=== PATIENT | male | born 1955 | race African-American/Black ===

== ENCOUNTER 2018-03-13 15:42 | Inpatient (IN) ==
[2018-03-13] MEDS: LACTATED RINGERS 1,000 ML IV SCH (15:45)
[2018-03-13] MEDS ORDERED: LACTATED RINGERS 2,000 ML IV STA (15:52)
[2018-03-13] MEDS ORDERED: DIPH/TET/ACEL PERT BOOSTER VACCINE 0.5 ML VIAL IM ONE (15:52)
[2018-03-13] MEDS ORDERED: LACTATED RINGERS 1,000 ML IV STA (15:52)
[2018-03-13 15:58] LABS: ABG Base Excess -17.4 MMOL/L (-2.5-2.5); ABG HCO3 11.5 MMOL/L (20-26); ABG Oxygen Saturation 99.4 % (95-100); ABG PCO2 27.4 MM HG (35-48); ABG TCO2 9.4 MMOL/L (23-27); Allen Test Positive
[2018-03-13 16:06] LABS: ABG PH 7.174 (7.35-7.45)
[2018-03-13 16:12] LABS: Apearance,Urine CLEAR (Clear); Bilirubin,Urine Negative (Negative); Blood, Urine Moderate mg/dL (Negative); Glucose,Urine (UA) Negative (Negative); Ketones,Urine Negative (Negative); Nitrite,Urine Negative (Negative); Protein,Urine Negative; RBC,Urine <1 /HPF (0-4); Urine Color Colorless (Yellow); Urine Specific Gravity 1.001 (1.001-1.035); Urine Urobilinogen < 2.0 EU/DL (0.2-1.0)
[2018-03-13 16:13] LABS: Basophils % 0.4 % (0.0-0.8); Eosinophils # 0.2 10*3/uL (0.0-0.87); Hematocrit 32.9 VOL% (42.0-52.0); Hemoglobin 10.3 GM/DL (14.0-18.0); Immature Granulocytes % 1.7 %; Immature Granulocytes Absolute 0.13 #; Lymphocytes # 3.1 10*3/uL (1.4-4.0); Lymphocytes % 41.3 % (21.2-54.2); Mean Corpuscular HGB Conc 31.3 GM/DL (32-36); Mean Corpuscular Hemoglobin 29 PG (27-34); Mean Corpuscular Volume 92.9 FL (87-102); Mean Platelet Volume 10.7 FL (9.6-12.0); Monocytes # 0.7 10*3/uL (0.11-0.8); Monocytes % 9.1 % (1.7-12.7); Neutrophils # 3.4 10*3/uL (1.4-7.4); Neutrophils % 45.5 % (38.7-73.9); Platelet Count 167 T/CUMM (130-400); Red Blood Count 3.54 MC/CUMM (3.8-5.5); Red Cell Distribution Width 15.1 % (9.3-17.3); White Blood Count 7.6 T/CUMM (4-12)
[2018-03-13 16:27] LABS: ABG Base Excess -21.3 MMOL/L (-2.5-2.5); ABG HCO3 9.3 MMOL/L (20-26); ABG Oxygen Saturation 99.3 % (95-100); ABG PCO2 34.7 MM HG (35-48); ABG TCO2 8.8 MMOL/L (23-27); Glucose Heart Surgery 285 MG/DL (74-106); Hemoglobin Heart Surgery 11.7 G/DL (14.0-18.0); Ionized Calcium Arterial 1.18 MMOL/L (1.21-1.46); PCO2 Patient Temp Arterial 34.7 MMHG; Patient Temperature 37 CELCIUS; Potassium Heart/CVR 2.6 MMOL/L (3.5-5.1); Sodium Heart/CVR 138 MMOL/L (135-145)
[2018-03-13 16:32] LABS: Barbiturates Screen,Urine Negative (Negative); Benzodiazepines Screen,Urine Negative (Negative); Cannabinoid Screen,Urine Negative (Negative); Opiate Screen,Urine Negative (Negative); Phencyclidine Screen,Urine Negative (Negative)
[2018-03-13 16:35] LABS: Alanine Aminotransferase 23 U/L (16-61); Albumin 2.5 G/DL (3.4-5.0); Alkaline Phosphatase 44 U/L (45-117); Amylase 34 U/L (25-115); Aspartate Amino Transferase 21 U/L (0-37); Bilirubin,Total < 0.39 MG/DL (0.2-1.0); Blood Urea Nitrogen 7 MG/DL (7-18); Calcium 8.1 MG/DL (8.5-10.1); Glucose 272 MG/DL (74-106); Osmolality,Calculated 284.5 MOS/KG (273-304); Potassium 3.8 MMOL/L (3.5-5.1); Sodium 139 MMOL/L (136-145); Total Protein 5.2 G/DL (6.4-8.3)
[2018-03-13 17:17] LABS: INR 1.4; PT Patient Result 14.8 SECS; Partial Thromboplastin Time 62.3 SECS (0-40)
[2018-03-13] MEDS ORDERED: PNEUMOCOCCAL VACCINE (23 VALENT) 0.5 ML VIAL IM ONE (17:23)
[2018-03-13] MEDS ORDERED: SODIUM CHLORIDE 0.9% 1,000 ML IV PRN ×2 (17:23)
[2018-03-13] MEDS ORDERED: MENINGOCOCCAL VACCINE 0.5 ML VIAL SUBCUT ONE (17:23)
[2018-03-13] MEDS ORDERED: HAEMOPHILUS B CONJ VACCINE 0.5 ML/10 MCG VIAL IM ONE (17:23)
[2018-03-13] MEDS ORDERED: PNEUMOCOCCAL VACCINE (13 VALENT) 0.5 ML SYRINGE IM ONE (17:23)
[2018-03-13] MEDS ORDERED: ETOMIDATE 20 MG/10 ML VIAL IV ONE (17:26)
[2018-03-13] MEDS ORDERED: ROCURONIUM 100 MG/10 ML VIAL IV ONE ×2 (17:26→19:56)
[2018-03-13 17:55] LABS: Basophils % 0.3 % (0.0-0.8); Eosinophils # 0.1 10*3/uL (0.0-0.87); Eosinophils % 0.5 % (0.00-10.9); Hematocrit 32.2 VOL% (42.0-52.0); Immature Granulocytes % 2.3 %; Immature Granulocytes Absolute 0.26 #; Lymphocytes # 1.1 10*3/uL (1.4-4.0); Lymphocytes % 9.5 % (21.2-54.2); Mean Corpuscular HGB Conc 34.2 GM/DL (32-36); Mean Corpuscular Hemoglobin 30 PG (27-34); Mean Corpuscular Volume 86.3 FL (87-102); Mean Platelet Volume 9.9 FL (9.6-12.0); Monocytes # 0.3 10*3/uL (0.11-0.8); Monocytes % 3.1 % (1.7-12.7); Neutrophils # 9.3 10*3/uL (1.4-7.4); Neutrophils % 84.3 % (38.7-73.9); Platelet Count 110 T/CUMM (130-400); Red Blood Count 3.73 MC/CUMM (3.8-5.5); Red Cell Distribution Width 13.9 % (9.3-17.3); White Blood Count 11.1 T/CUMM (4-12)
[2018-03-13 17:58] LABS: ABG Base Excess -2.9 MMOL/L (-2.5-2.5); ABG Oxygen Saturation 99.8 % (95-100); ABG PCO2 33.5 MM HG (35-48); ABG PH 7.406 (7.35-7.45); ABG TCO2 18.8 MMOL/L (23-27)
[2018-03-13] MEDS ORDERED: SEVOFLURANE 1 UNIT/15 MINUTE INH ONE ×2 (18:02→19:55)
[2018-03-13] MEDS ORDERED: MIDAZOLAM 2 MG/2 ML VIAL ONE ×2 (18:02→19:56)
[2018-03-13] MEDS ORDERED: SODIUM CHLORIDE 0.9% 3,000 ML IV ONE (18:02)
[2018-03-13] MEDS ORDERED: LACTATED RINGERS 1,000 ML IV ONE ×4 (18:02→22:41)
[2018-03-13] MEDS ORDERED: EPINEPHrine 1 MG/10 ML SYRINGE ONE (18:02)
[2018-03-13] MEDS ORDERED: CALCIUM CHLORIDE 1,000 MG/10 ML VIAL IV ONE (18:02)
[2018-03-13] MEDS ORDERED: MIDAZOLAM 10 MG/2 ML VIAL ONE (18:02)
[2018-03-13] MEDS ORDERED: SODIUM BICARBONATE 50 MEQ/50 ML SYRINGE IV ONE (18:02)
[2018-03-13] MEDS ORDERED: HEPARIN/NACL 0.9% 2 UNITS/ML 500 ML IV ONE (18:03)
[2018-03-13 18:07] LABS: INR 1.1; PT Patient Result 11.7 SECS
[2018-03-13 18:19] LABS: Albumin 2.8 G/DL (3.4-5.0); Bilirubin,Total 0.6 MG/DL (0.2-1.0); Calcium 7.2 MG/DL (8.5-10.1); Osmolality,Calculated 295.3 MOS/KG (273-304); Total Protein 5.4 G/DL (6.4-8.3)
[2018-03-13] MEDS ORDERED: HYDROmorphone 2 MG/1 ML VIAL IV ONE (18:20)
[2018-03-13 18:22] LABS: Lactic Acid 8.4 MMOL/L (0.4-2.0)
[2018-03-13] MEDS ORDERED: HYDROmorphone 2 MG/1 ML VIAL ONE (18:28)
[2018-03-13] MEDS ORDERED: POTASSIUM CHLORIDE RIDER 20 MEQ in PREMIX 1 EACH IV PRN (18:34)
[2018-03-13] MEDS ORDERED: POTASSIUM CHLORIDE RIDER 10 MEQ in PREMIX 1 EACH IV PRN (18:34)
[2018-03-13] MEDS ORDERED: POTASSIUM CHLORIDE RIDER 100 ML IV ONE (18:36)
[2018-03-13 18:40] LABS: ABG Base Excess -2.9 MMOL/L (-2.5-2.5); ABG Oxygen Saturation 99.3 % (95-100); ABG PCO2 36.2 MM HG (35-48); ABG PH 7.384 (7.35-7.45); ABG TCO2 19.2 MMOL/L (23-27); Glucose Heart Surgery 206 MG/DL (74-106); Hemoglobin Heart Surgery 11.7 G/DL (14.0-18.0); Potassium Heart/CVR 3.3 MMOL/L (3.5-5.1)
[2018-03-13] MEDS ORDERED: SODIUM CHLORIDE 0.9% 1,000 ML IV ONE (19:56)
[2018-03-13] MEDS: PROPOFOL 1,000 MG/100 ML BOTTLE IV SCH (21:18)
[2018-03-13] MEDS: HYDROmorphone 2 MG/1 ML VIAL IV PRN ×2 (21:29→23:08)
[2018-03-13 21:41] LABS: Band Neutrophils 3 % (0-10); Lymphocytes 11 % (20-55); Segmented Neutrophils 82 % (50-85); Total Cells Counted 100
[2018-03-13 21:41] LABS: Basophils % 0.1 % (0.0-0.8); Eosinophils % 0.1 % (0.00-10.9); Hematocrit 24.6 VOL% (42.0-52.0); Hemoglobin 8.3 GM/DL (14.0-18.0); Immature Granulocytes % 0.5 %; Immature Granulocytes Absolute 0.04 #; Lymphocytes # 1.6 10*3/uL (1.4-4.0); Lymphocytes % 18.9 % (21.2-54.2); Mean Corpuscular HGB Conc 33.7 GM/DL (32-36); Mean Corpuscular Hemoglobin 29 PG (27-34); Mean Corpuscular Volume 86.6 FL (87-102); Monocytes # 0.4 10*3/uL (0.11-0.8); Monocytes % 5.2 % (1.7-12.7); Neutrophils # 6.3 10*3/uL (1.4-7.4); Neutrophils % 75.2 % (38.7-73.9); Platelet Count 64 T/CUMM (130-400); Red Blood Count 2.84 MC/CUMM (3.8-5.5); Red Cell Distribution Width 13.7 % (9.3-17.3); White Blood Count 8.3 T/CUMM (4-12)
[2018-03-13 21:42] LABS: Spherocytes Few
[2018-03-13 21:43] LABS: Anisocytosis Slight
[2018-03-13 21:45] LABS: Platelet Estimate Adequate
[2018-03-13 22:05] LABS: Alanine Aminotransferase 57 U/L (16-61); Albumin 1.8 G/DL (3.4-5.0); Alkaline Phosphatase 33 U/L (45-117); Aspartate Amino Transferase 111 U/L (0-37); Blood Urea Nitrogen 8 MG/DL (7-18); Calcium 6.3 MG/DL (8.5-10.1); Glucose 148 MG/DL (74-106); Osmolality,Calculated 299.9 MOS/KG (273-304); Potassium 3.4 MMOL/L (3.5-5.1); Sodium 151 MMOL/L (136-145); Total Protein 3.5 G/DL (6.4-8.3)
[2018-03-13 22:13] LABS: Lactic Acid 8.3 MMOL/L (0.4-2.0)
[2018-03-13] MEDS ORDERED: CALCIUM GLUCONATE 1,000 MG in SODIUM CHLORIDE 0.9% 100 ML IV ONE (22:40)
[2018-03-13 23:07] LABS: Band Neutrophils 7 % (0-10); Lymphocytes 21 % (20-55); Segmented Neutrophils 71 % (50-85); Total Cells Counted 100
[2018-03-13 23:09] LABS: Platelet Estimate Decreased
[2018-03-13 23:10] LABS: Anisocytosis Slight
[2018-03-13] MEDS ORDERED: PHENYLEPHRINE DRIP 40 MG/250 ML PREMIX IV PRN (23:11)
[2018-03-14] MEDS: PROPOFOL 1,000 MG/100 ML BOTTLE IV SCH ×7 (00:53→23:32)
[2018-03-14 00:56] LABS: Basophils % 0.1 % (0.0-0.8); Eosinophils % 0.1 % (0.00-10.9); Hematocrit 31.2 VOL% (42.0-52.0); Hemoglobin 11.1 GM/DL (14.0-18.0); Immature Granulocytes % 0.5 %; Immature Granulocytes Absolute 0.04 #; Lymphocytes % 12.9 % (21.2-54.2); Mean Corpuscular HGB Conc 35.6 GM/DL (32-36); Mean Corpuscular Hemoglobin 31 PG (27-34); Mean Corpuscular Volume 85.7 FL (87-102); Mean Platelet Volume 9.8 FL (9.6-12.0); Monocytes # 0.7 10*3/uL (0.11-0.8); Monocytes % 9.7 % (1.7-12.7); Neutrophils # 5.6 10*3/uL (1.4-7.4); Neutrophils % 76.7 % (38.7-73.9); Platelet Count 58 T/CUMM (130-400); Red Blood Count 3.64 MC/CUMM (3.8-5.5); Red Cell Distribution Width 14.1 % (9.3-17.3); White Blood Count 7.3 T/CUMM (4-12)
[2018-03-14] MEDS: LACTATED RINGERS 1,000 ML IV SCH ×4 (01:09→18:26)
[2018-03-14 01:14] LABS: Albumin 1.9 G/DL (3.4-5.0); Bilirubin,Total 0.4 MG/DL (0.2-1.0); Calcium 6.9 MG/DL (8.5-10.1); Potassium 3.7 MMOL/L (3.5-5.1); Total Protein 3.9 G/DL (6.4-8.3)
[2018-03-14 01:39] LABS: Lactic Acid 2.4 MMOL/L (0.4-2.0)
[2018-03-14 02:31] LABS: Band Neutrophils 5 % (0-10); Lymphocytes 11 % (20-55); Segmented Neutrophils 76 % (50-85); Total Cells Counted 100
[2018-03-14 02:32] LABS: Anisocytosis 1+; Hypochromasia 1+; Platelet Estimate Decreased
[2018-03-14] MEDS: HYDROmorphone 2 MG/1 ML VIAL IV PRN (03:24)
[2018-03-14 05:00] LABS: ABG Base Excess 2.1 MMOL/L (-2.5-2.5); ABG HCO3 26.3 MMOL/L (20-26); ABG Oxygen Saturation 99.6 % (95-100); ABG PCO2 35.6 MM HG (35-48); ABG PH 7.465 (7.35-7.45); ABG TCO2 22.7 MMOL/L (23-27)
[2018-03-14 05:06] LABS: Basophils % 0.2 % (0.0-0.8); Eosinophils % 0.3 % (0.00-10.9); Hematocrit 32.6 VOL% (42.0-52.0); Hemoglobin 11.2 GM/DL (14.0-18.0); Immature Granulocytes % 0.3 %; Immature Granulocytes Absolute 0.03 #; Lymphocytes # 0.8 10*3/uL (1.4-4.0); Lymphocytes % 8.7 % (21.2-54.2); Mean Corpuscular HGB Conc 34.4 GM/DL (32-36); Mean Corpuscular Hemoglobin 29 PG (27-34); Mean Corpuscular Volume 85.6 FL (87-102); Mean Platelet Volume 10.2 FL (9.6-12.0); Monocytes % 10.6 % (1.7-12.7); Neutrophils # 7.1 10*3/uL (1.4-7.4); Neutrophils % 79.9 % (38.7-73.9); Platelet Count 68 T/CUMM (130-400); Red Blood Count 3.81 MC/CUMM (3.8-5.5); Red Cell Distribution Width 14.2 % (9.3-17.3)
[2018-03-14 05:13] LABS: INR 1.2; PT Patient Result 12.1 SECS
[2018-03-14 05:34] LABS: Calcium 6.9 MG/DL (8.5-10.1); Osmolality,Calculated 291.3 MOS/KG (273-304); Potassium 3.9 MMOL/L (3.5-5.1)
[2018-03-14 05:36] LABS: Alanine Aminotransferase 101 U/L (16-61); Albumin 1.9 G/DL (3.4-5.0); Alkaline Phosphatase 46 U/L (45-117); Aspartate Amino Transferase 333 U/L (0-37); Blood Urea Nitrogen 8 MG/DL (7-18); Glucose 103 MG/DL (74-106); Osmolality,Calculated 289.4 MOS/KG (273-304); Potassium 3.9 MMOL/L (3.5-5.1); Sodium 147 MMOL/L (136-145); Total Protein 4.1 G/DL (6.4-8.3)
[2018-03-14 05:47] LABS: Band Neutrophils 13 % (0-10); Eosinophils 1 % (0-10); Hypochromasia 1+; Lymphocytes 20 % (20-55); Ovalocytes Slight; Platelet Estimate Decreased; Segmented Neutrophils 58 % (50-85); Total Cells Counted 100
[2018-03-14] MEDS ORDERED: MAGNESIUM SULF RIDER 4 GM in PREMIX 1 EACH IV PRN (06:21)
[2018-03-14] MEDS ORDERED: CALCIUM GLUCONATE 1,000 MG in SODIUM CHLORIDE 0.9% 100 ML IV ONE ×2 (06:21→09:00)
[2018-03-14] MEDS: MAGNESIUM SULF RIDER 2 GM in PREMIX 1 EACH IV PRN ×2 (06:32→09:40)
[2018-03-14] MEDS: LACTATED RINGERS 500 ML IV PRN ×3 (07:52→22:26)
[2018-03-14] MEDS ORDERED: cefOXitin 2,000 MG in SYRINGE 1 EACH IV ONE (08:00)
[2018-03-14] MEDS: fentaNYL INJ 1,250 MCG in SODIUM CHLORIDE 0.9% 225 ML IV PRN ×2 (08:29→17:22)
[2018-03-14 08:49] LABS: Lactic Acid 3.3 MMOL/L (0.4-2.0)
[2018-03-14] MEDS: LACTATED RINGERS 250 ML IV PRN (10:45)
[2018-03-14 11:40] LABS: Hematocrit 29.9 VOL% (42.0-52.0); Hemoglobin 10.5 GM/DL (14.0-18.0)
[2018-03-14] MEDS ORDERED: MENINGOCOCCAL VACCINE 0.5 ML VIAL IM ONE (12:00)
[2018-03-14] MEDS ORDERED: LACTATED RINGERS 1,000 ML IV ONE (16:55)
[2018-03-14] MEDS: PIPERACILLIN/TAZOBACTAM 3,375 MG in SODIUM CHLORIDE 0.9% 100 ML IV SCH ×2 (17:08→17:59)
[2018-03-14 18:01] LABS: Hematocrit 29.3 VOL% (42.0-52.0); Hemoglobin 10.2 GM/DL (14.0-18.0)
[2018-03-15] MEDS: LACTATED RINGERS 500 ML IV PRN ×6 (00:02→21:02)
[2018-03-15 01:03] LABS: Basophils % 0.2 % (0.0-0.8); Eosinophils # 0.1 10*3/uL (0.0-0.87); Eosinophils % 1.3 % (0.00-10.9); Hematocrit 26.8 VOL% (42.0-52.0); Hemoglobin 9.1 GM/DL (14.0-18.0); Immature Granulocytes % 0.8 %; Immature Granulocytes Absolute 0.08 #; Lymphocytes % 10.2 % (21.2-54.2); Mean Corpuscular Hemoglobin 30 PG (27-34); Mean Corpuscular Volume 88.4 FL (87-102); Mean Platelet Volume 11.2 FL (9.6-12.0); Monocytes # 1.3 10*3/uL (0.11-0.8); Monocytes % 13.1 % (1.7-12.7); Neutrophils # 7.3 10*3/uL (1.4-7.4); Neutrophils % 74.4 % (38.7-73.9); Platelet Count 109 T/CUMM (130-400); Red Blood Count 3.03 MC/CUMM (3.8-5.5); Red Cell Distribution Width 14.9 % (9.3-17.3); White Blood Count 9.8 T/CUMM (4-12)
[2018-03-15 01:05] LABS: Hematocrit 26.5 VOL% (42.0-52.0); Hemoglobin 9.1 GM/DL (14.0-18.0)
[2018-03-15] MEDS: LACTATED RINGERS 1,000 ML IV SCH ×5 (01:25→17:43)
[2018-03-15 01:26] LABS: Calcium 7.3 MG/DL (8.5-10.1); Osmolality,Calculated 276.4 MOS/KG (273-304); Potassium 4.2 MMOL/L (3.5-5.1)
[2018-03-15 01:34] LABS: Hypochromasia Slight; Platelet Estimate Decreased; Polychromasia Few
[2018-03-15] MEDS: PIPERACILLIN/TAZOBACTAM 3,375 MG in SODIUM CHLORIDE 0.9% 100 ML IV SCH ×3 (01:43→17:56)
[2018-03-15] MEDS: fentaNYL INJ 1,250 MCG in SODIUM CHLORIDE 0.9% 225 ML IV PRN ×3 (02:52→22:28)
[2018-03-15] MEDS: PROPOFOL 1,000 MG/100 ML BOTTLE IV SCH ×3 (03:43→15:57)
[2018-03-15] MEDS: HYDROmorphone 2 MG/1 ML VIAL IV PRN ×2 (04:20→21:05)
[2018-03-15 04:46] LABS: ABG Base Excess -2.1 MMOL/L (-2.5-2.5); ABG HCO3 22.7 MMOL/L (20-26); ABG Oxygen Saturation 99.4 % (95-100); ABG PCO2 34.8 MM HG (35-48); ABG TCO2 20.3 MMOL/L (23-27)
[2018-03-15] MEDS ORDERED: MICROFIBRILLAR COLLAGEN POWDER 1 GM CAN TOP ONE (07:53)
[2018-03-15] MEDS ORDERED: SEVOFLURANE 1 UNIT/15 MINUTE INH ONE (09:29)
[2018-03-15] MEDS ORDERED: fentaNYL 100 MCG/2 ML VIAL ONE (09:30)
[2018-03-15] MEDS ORDERED: VECURONIUM 10 MG VIAL IV ONE (09:30)
[2018-03-15] MEDS ORDERED: PHENYLEPHRINE 10 MG/1 ML VIAL IV ONE (09:30)
[2018-03-15] MEDS ORDERED: LACTATED RINGERS 1,000 ML IV ONE (09:30)
[2018-03-15] MEDS ORDERED: ROCURONIUM 100 MG/10 ML VIAL IV ONE (09:30)
[2018-03-15] MEDS ORDERED: MIDAZOLAM 10 MG/2 ML VIAL ONE (09:30)
[2018-03-15] MEDS ORDERED: SUFentanil 50 MCG/ML AMP ONE (09:30)
[2018-03-15] MEDS: PANTOPRAZOLE 40 MG VIAL IV SCH (11:36)
[2018-03-15 13:01] LABS: Hematocrit 29.4 VOL% (42.0-52.0); Hemoglobin 10.1 GM/DL (14.0-18.0)
[2018-03-15] MEDS ORDERED: GLUCAGON 1 MG VIAL IM PRN (13:22)
[2018-03-15 16:34] LABS: Hematocrit 26.7 VOL% (42.0-52.0); Hemoglobin 9.1 GM/DL (14.0-18.0)
[2018-03-15] MEDS: BACITRACIN OINT 0.9 GM PACK TOP SCH (17:44)
[2018-03-15] MEDS: INSULIN REGULAR 100 UNIT/ML SUBCUT SCH (18:22)
[2018-03-15] MEDS: DEXTROSE 50% 25 GM/50 ML VIAL IV PRN (18:22)
[2018-03-16] MEDS: PROPOFOL 1,000 MG/100 ML BOTTLE IV SCH ×3 (00:28→12:34)
[2018-03-16] MEDS: LACTATED RINGERS 1,000 ML IV SCH ×5 (00:31→20:40)
[2018-03-16] MEDS: INSULIN REGULAR 100 UNIT/ML SUBCUT SCH ×4 (00:31→18:41)
[2018-03-16] MEDS: PIPERACILLIN/TAZOBACTAM 3,375 MG in SODIUM CHLORIDE 0.9% 100 ML IV SCH ×3 (01:41→21:00)
[2018-03-16 03:42] LABS: Basophils % 0.3 % (0.0-0.8); Eosinophils # 0.4 10*3/uL (0.0-0.87); Eosinophils % 3.7 % (0.00-10.9); Hematocrit 26.4 VOL% (42.0-52.0); Hemoglobin 8.8 GM/DL (14.0-18.0); Lymphocytes # 0.8 10*3/uL (1.4-4.0); Lymphocytes % 7.4 % (21.2-54.2); Mean Corpuscular HGB Conc 33.3 GM/DL (32-36); Mean Corpuscular Hemoglobin 30 PG (27-34); Mean Corpuscular Volume 89.2 FL (87-102); Monocytes # 1.1 10*3/uL (0.11-0.8); Monocytes % 10.1 % (1.7-12.7); NRBC # 0.02 10*3/uL; Neutrophils # 8.2 10*3/uL (1.4-7.4); Neutrophils % 77.5 % (38.7-73.9); Platelet Count 101 T/CUMM (130-400); Red Blood Count 2.96 MC/CUMM (3.8-5.5); Red Cell Distribution Width 14.4 % (9.3-17.3); White Blood Count 10.5 T/CUMM (4-12)
[2018-03-16 03:43] LABS: ABG Base Excess -0.4 MMOL/L (-2.5-2.5); ABG HCO3 24.2 MMOL/L (20-26); ABG Oxygen Saturation 99.7 % (95-100); ABG PCO2 37.2 MM HG (35-48); ABG PH 7.417 (7.35-7.45); ABG TCO2 22.3 MMOL/L (23-27)
[2018-03-16 03:59] LABS: Calcium 7.6 MG/DL (8.5-10.1); Osmolality,Calculated 274.7 MOS/KG (273-304); Potassium 4.1 MMOL/L (3.5-5.1)
[2018-03-16 04:12] LABS: Platelet Estimate Decreased
[2018-03-16 04:13] LABS: Polychromasia Few
[2018-03-16] MEDS: fentaNYL INJ 1,250 MCG in SODIUM CHLORIDE 0.9% 225 ML IV PRN ×3 (06:13→23:04)
[2018-03-16] MEDS ORDERED: CLORAZEPATE 7.5 MG TABLET PO PRN (06:35)
[2018-03-16] MEDS: CLORAZEPATE 7.5 MG TABLET PO SCH ×3 (08:30→18:05)
[2018-03-16] MEDS: PANTOPRAZOLE 40 MG VIAL IV SCH (08:31)
[2018-03-16] MEDS: HYDROmorphone 2 MG/1 ML VIAL IV PRN ×3 (11:09→22:45)
[2018-03-16] MEDS: METOPROLOL TARTRATE 25 MG TABLET PO SCH ×2 (13:31→20:44)
[2018-03-16] MEDS ORDERED: MIDAZOLAM 2 MG/2 ML VIAL IV ONE (18:07)
[2018-03-16] MEDS: ACETAMINOPHEN 325 MG TABLET NG PRN (19:00)
[2018-03-16] MEDS: BACITRACIN OINT 0.9 GM PACK TOP SCH (19:22)
[2018-03-16] MEDS ORDERED: LORazepam INJ 40 MG in DEXTROSE 5% 30 ML IV PRN (22:54)
[2018-03-17] MEDS: INSULIN REGULAR 100 UNIT/ML SUBCUT SCH ×4 (00:51→18:21)
[2018-03-17] MEDS: PROPOFOL 1,000 MG/100 ML BOTTLE IV SCH (01:04)
[2018-03-17] MEDS: CLORAZEPATE 7.5 MG TABLET PO SCH ×4 (02:20→19:10)
[2018-03-17 03:18] LABS: Allen Test Positive; Pt O2 Delivery Device Ventilator
[2018-03-17 03:19] LABS: ABG Base Excess 0.1 MMOL/L (-2.5-2.5); ABG HCO3 24.6 MMOL/L (20-26); ABG Oxygen Saturation 97.5 % (95-100); ABG PCO2 42.4 MM HG (35-48); ABG PH 7.383 (7.35-7.45); ABG PO2 93.7 MM HG (80-95); ABG TCO2 23.7 MMOL/L (23-27)
[2018-03-17] MEDS: LACTATED RINGERS 1,000 ML IV SCH (03:31)
[2018-03-17] MEDS ORDERED: ONDANSETRON 4 MG/2 ML VIAL ONE (03:45)
[2018-03-17] MEDS: ONDANSETRON 4 MG/2 ML VIAL IV PRN (04:12)
[2018-03-17 04:49] LABS: Basophils % 0.2 % (0.0-0.8); Eosinophils # 0.5 10*3/uL (0.0-0.87); Eosinophils % 4.1 % (0.00-10.9); Hematocrit 21.4 VOL% (42.0-52.0); Immature Granulocytes % 1.7 %; Immature Granulocytes Absolute 0.21 #; Lymphocytes # 0.8 10*3/uL (1.4-4.0); Lymphocytes % 6.4 % (21.2-54.2); Mean Corpuscular HGB Conc 32.7 GM/DL (32-36); Mean Corpuscular Hemoglobin 30 PG (27-34); Mean Corpuscular Volume 90.7 FL (87-102); Mean Platelet Volume 10.7 FL (9.6-12.0); Monocytes # 1.7 10*3/uL (0.11-0.8); Monocytes % 13.2 % (1.7-12.7); NRBC # 0.31 10*3/uL; Neutrophils # 9.5 10*3/uL (1.4-7.4); Neutrophils % 74.4 % (38.7-73.9); Platelet Count 134 T/CUMM (130-400); Red Blood Count 2.36 MC/CUMM (3.8-5.5); Red Cell Distribution Width 14.2 % (9.3-17.3); White Blood Count 12.7 T/CUMM (4-12)
[2018-03-17] MEDS: HYDROmorphone 2 MG/1 ML VIAL IV PRN ×4 (04:56→22:00)
[2018-03-17 05:13] LABS: Calcium 7.3 MG/DL (8.5-10.1); Osmolality,Calculated 274.5 MOS/KG (273-304); Potassium 3.5 MMOL/L (3.5-5.1)
[2018-03-17 05:28] LABS: Eosinophils 5 % (0-10); Lymphocytes 4 % (20-55); Metamyelocytes 1 %; Platelet Estimate Decreased; Polychromasia Few; Segmented Neutrophils 85 % (50-85); Total Cells Counted 100
[2018-03-17] MEDS: DEXTROSE 50% 25 GM/50 ML VIAL IV PRN (05:30)
[2018-03-17] MEDS: PIPERACILLIN/TAZOBACTAM 3,375 MG in SODIUM CHLORIDE 0.9% 100 ML IV SCH ×2 (06:10→15:39)
[2018-03-17] MEDS: fentaNYL INJ 1,250 MCG in SODIUM CHLORIDE 0.9% 225 ML IV PRN ×3 (07:30→23:56)
[2018-03-17] MEDS: PANTOPRAZOLE 40 MG VIAL IV SCH (10:25)
[2018-03-17] MEDS: BACITRACIN OINT 0.9 GM PACK TOP SCH (10:25)
[2018-03-17] MEDS: METOPROLOL TARTRATE 25 MG TABLET PO SCH ×2 (10:25→22:15)
[2018-03-17] MEDS: ENOXAPARIN 40 MG/0.4 ML SYRINGE SUBCUT SCH (14:35)
[2018-03-17] MEDS: DEXT 5% NACL 0.45% KCL 40 MEQ 40 MEQ/1,000 ML BAG IV SCH (14:35)
[2018-03-17 16:06] LABS: Hematocrit 27.6 VOL% (42.0-52.0)
[2018-03-17 16:07] LABS: Hemoglobin 9.2 GM/DL (14.0-18.0)
[2018-03-17] MEDS: LORazepam 2 MG/1 ML VIAL IV PRN ×2 (19:24→23:40)
[2018-03-18] MEDS: INSULIN REGULAR 100 UNIT/ML SUBCUT SCH ×4 (00:09→18:34)
[2018-03-18] MEDS: DEXT 5% NACL 0.45% KCL 40 MEQ 40 MEQ/1,000 ML BAG IV SCH ×3 (00:24→21:03)
[2018-03-18] MEDS: PROPOFOL 1,000 MG/100 ML BOTTLE IV SCH ×4 (02:50→20:32)
[2018-03-18 03:07] LABS: ABG Base Excess 1.8 MMOL/L (-2.5-2.5); ABG HCO3 25.6 MMOL/L (20-26); ABG Oxygen Saturation 98.2 % (95-100); ABG PCO2 37.2 MM HG (35-48); ABG PH 7.456 (7.35-7.45); ABG PO2 131.8 MM HG (80-95); ABG TCO2 26.8 MMOL/L (23-27); Allen Test Positive; Pt O2 Delivery Device Ventilator
[2018-03-18] MEDS: CLORAZEPATE 7.5 MG TABLET PO SCH ×5 (03:30→23:54)
[2018-03-18] MEDS: LORazepam 2 MG/1 ML VIAL IV PRN ×2 (04:00→19:12)
[2018-03-18 05:03] LABS: Basophils % 0.4 % (0.0-0.8); Eosinophils # 0.6 10*3/uL (0.0-0.87); Eosinophils % 4.8 % (0.00-10.9); Hemoglobin 9.3 GM/DL (14.0-18.0); Immature Granulocytes % 3.6 %; Immature Granulocytes Absolute 0.41 #; Lymphocytes % 8.9 % (21.2-54.2); Mean Corpuscular HGB Conc 33.2 GM/DL (32-36); Mean Corpuscular Hemoglobin 30 PG (27-34); Mean Corpuscular Volume 90.3 FL (87-102); Monocytes # 1.9 10*3/uL (0.11-0.8); Monocytes % 16.5 % (1.7-12.7); NRBC # 0.18 10*3/uL; Neutrophils # 7.5 10*3/uL (1.4-7.4); Neutrophils % 65.8 % (38.7-73.9); Platelet Count 173 T/CUMM (130-400); White Blood Count 11.4 T/CUMM (4-12)
[2018-03-18] MEDS: fentaNYL INJ 1,250 MCG in SODIUM CHLORIDE 0.9% 225 ML IV PRN (05:20)
[2018-03-18 05:26] LABS: Calcium 7.3 MG/DL (8.5-10.1); Osmolality,Calculated 272.7 MOS/KG (273-304); Potassium 3.8 MMOL/L (3.5-5.1)
[2018-03-18 05:33] LABS: Band Neutrophils 1 % (0-10); Eosinophils 5 % (0-10); Lymphocytes 6 % (20-55); Nucleated Red Blood Cells 1 (0-5); Segmented Neutrophils 82 % (50-85); Total Cells Counted 100
[2018-03-18 05:34] LABS: Platelet Estimate Normal; Polychromasia Few
[2018-03-18] MEDS ORDERED: CLORAZEPATE 3.75 MG TABLET PO SCH (10:00)
[2018-03-18] MEDS: PIPERACILLIN/TAZOBACTAM 3,375 MG in SODIUM CHLORIDE 0.9% 100 ML IV SCH ×4 (10:16→16:23)
[2018-03-18] MEDS: PANTOPRAZOLE 40 MG VIAL IV SCH (10:18)
[2018-03-18] MEDS: METOPROLOL TARTRATE 25 MG TABLET PO SCH (10:44)
[2018-03-18] MEDS: HYDROmorphone 2 MG/1 ML VIAL IV PRN ×5 (10:58→23:42)
[2018-03-18] MEDS: BACITRACIN OINT 0.9 GM PACK TOP SCH (11:15)
[2018-03-18] MEDS: ENOXAPARIN 40 MG/0.4 ML SYRINGE SUBCUT SCH (14:34)
[2018-03-18] MEDS: ONDANSETRON 4 MG/2 ML VIAL IV PRN ×2 (19:31→23:41)
[2018-03-19] MEDS: INSULIN REGULAR 100 UNIT/ML SUBCUT SCH ×5 (00:15→23:16)
[2018-03-19] MEDS: PROPOFOL 1,000 MG/100 ML BOTTLE IV SCH ×5 (01:46→21:24)
[2018-03-19] MEDS: HYDROmorphone 2 MG/1 ML VIAL IV PRN ×3 (03:00→14:07)
[2018-03-19 04:51] LABS: ABG Base Excess 1.9 MMOL/L (-2.5-2.5); ABG HCO3 26.2 MMOL/L (20-26); ABG Oxygen Saturation 99.4 % (95-100); ABG PCO2 31.2 MM HG (35-48); ABG PH 7.502 (7.35-7.45); ABG TCO2 21.5 MMOL/L (23-27); Allen Test Positive; Pt O2 Delivery Device Ventilator
[2018-03-19 04:59] LABS: Basophils % 0.4 % (0.0-0.8); Eosinophils # 0.5 10*3/uL (0.0-0.87); Eosinophils % 4.5 % (0.00-10.9); Hematocrit 27.5 VOL% (42.0-52.0); Hemoglobin 9.2 GM/DL (14.0-18.0); Immature Granulocytes % 5.6 %; Immature Granulocytes Absolute 0.58 #; Lymphocytes # 0.8 10*3/uL (1.4-4.0); Mean Corpuscular HGB Conc 33.5 GM/DL (32-36); Mean Corpuscular Hemoglobin 31 PG (27-34); Mean Corpuscular Volume 91.1 FL (87-102); Monocytes # 1.6 10*3/uL (0.11-0.8); Monocytes % 15.8 % (1.7-12.7); NRBC # 0.04 10*3/uL; Neutrophils # 6.8 10*3/uL (1.4-7.4); Neutrophils % 65.7 % (38.7-73.9); Platelet Count 226 T/CUMM (130-400); Red Blood Count 3.02 MC/CUMM (3.8-5.5); Red Cell Distribution Width 14.2 % (9.3-17.3); White Blood Count 10.4 T/CUMM (4-12)
[2018-03-19 05:22] LABS: Calcium 7.6 MG/DL (8.5-10.1); Potassium 4.1 MMOL/L (3.5-5.1)
[2018-03-19] MEDS: CLORAZEPATE 7.5 MG TABLET PO SCH (05:23)
[2018-03-19 05:27] LABS: Prealbumin 5.2 MG/DL (20-40)
[2018-03-19 05:59] LABS: Band Neutrophils 4 % (0-10); Lymphocytes 9 % (20-55); Metamyelocytes 1 %; Platelet Estimate Normal; Segmented Neutrophils 71 % (50-85); Total Cells Counted 100
[2018-03-19 06:00] LABS: Hypochromasia 2+
[2018-03-19] MEDS: LORazepam 2 MG/1 ML VIAL IV PRN ×3 (06:23→22:05)
[2018-03-19] MEDS ORDERED: LIDOCAINE 2% 20 ML VIAL RESP TX ONE (07:57)
[2018-03-19] MEDS ORDERED: LIDOCAINE 1% 20 ML VIAL MISC INJ ONE (07:57)
[2018-03-19] MEDS ORDERED: MIDAZOLAM 2 MG/2 ML VIAL IV ONE (07:57)
[2018-03-19] MEDS: DEXT 5% NACL 0.45% KCL 40 MEQ 40 MEQ/1,000 ML BAG IV SCH ×2 (08:02→18:00)
[2018-03-19] MEDS: PIPERACILLIN/TAZOBACTAM 3,375 MG in SODIUM CHLORIDE 0.9% 100 ML IV SCH ×4 (08:20→22:36)
[2018-03-19] MEDS: PANTOPRAZOLE 40 MG VIAL IV SCH (08:21)
[2018-03-19] MEDS: BACITRACIN OINT 0.9 GM PACK TOP SCH (08:22)
[2018-03-19] MEDS ORDERED: DEXTROSE 10% 1,000 ML IV PRN (08:34)
[2018-03-19] MEDS ORDERED: INFLUENZA VIRUS VACCINE 0.5 ML SYRINGE IM ONE (09:00)
[2018-03-19] MEDS: LACTATED RINGERS 250 ML IV PRN (12:10)
[2018-03-19] MEDS: ENOXAPARIN 40 MG/0.4 ML SYRINGE SUBCUT SCH (14:06)
[2018-03-19] MEDS ORDERED: TRACE ELEMENTS (5) 1 ML, MULTIVITAMIN INJ 10 ML in AMINO ACIDS/DEXT/LYTES 5-15% 2,000 ML IV SCH (17:00)
[2018-03-19] MEDS: ACETAMINOPHEN 650 MG SUPP RECTAL PRN (21:28)
[2018-03-20] MEDS: PROPOFOL 1,000 MG/100 ML BOTTLE IV SCH ×5 (00:22→20:37)
[2018-03-20 04:30] LABS: ABG Base Excess 2.3 MMOL/L (-2.5-2.5); ABG Oxygen Saturation 98.1 % (95-100); ABG PCO2 31.8 MM HG (35-48); ABG PH 7.513 (7.35-7.45); ABG PO2 119.7 MM HG (80-95)
[2018-03-20 04:34] LABS: Basophils % 0.3 % (0.0-0.8); Eosinophils # 0.4 10*3/uL (0.0-0.87); Eosinophils % 3.3 % (0.00-10.9); Hematocrit 26.7 VOL% (42.0-52.0); Hemoglobin 8.5 GM/DL (14.0-18.0); Immature Granulocytes % 4.6 %; Immature Granulocytes Absolute 0.54 #; Lymphocytes # 1.1 10*3/uL (1.4-4.0); Lymphocytes % 8.9 % (21.2-54.2); Mean Corpuscular HGB Conc 31.8 GM/DL (32-36); Mean Corpuscular Hemoglobin 29 PG (27-34); Mean Corpuscular Volume 91.1 FL (87-102); Mean Platelet Volume 9.7 FL (9.6-12.0); Monocytes # 1.6 10*3/uL (0.11-0.8); Monocytes % 13.7 % (1.7-12.7); NRBC # 0.07 10*3/uL; Neutrophils # 8.2 10*3/uL (1.4-7.4); Neutrophils % 69.2 % (38.7-73.9); Platelet Count 330 T/CUMM (130-400); Red Blood Count 2.93 MC/CUMM (3.8-5.5); Red Cell Distribution Width 14.1 % (9.3-17.3); White Blood Count 11.8 T/CUMM (4-12)
[2018-03-20] MEDS: DEXT 5% NACL 0.45% KCL 40 MEQ 40 MEQ/1,000 ML BAG IV SCH (04:39)
[2018-03-20 05:03] LABS: Calcium 7.8 MG/DL (8.5-10.1); Osmolality,Calculated 282.1 MOS/KG (273-304); Potassium 4.1 MMOL/L (3.5-5.1)
[2018-03-20 05:05] LABS: Band Neutrophils 4 % (0-10); Eosinophils 3 % (0-10); Hypochromasia Slight; Lymphocytes 11 % (20-55); Ovalocytes 1+; Platelet Estimate Normal; Polychromasia 1+; Segmented Neutrophils 70 % (50-85); Target Cells Few; Total Cells Counted 100
[2018-03-20] MEDS: INSULIN REGULAR 100 UNIT/ML SUBCUT SCH ×3 (06:06→18:28)
[2018-03-20] MEDS: PIPERACILLIN/TAZOBACTAM 3,375 MG in SODIUM CHLORIDE 0.9% 100 ML IV SCH ×3 (08:17→23:45)
[2018-03-20] MEDS: BACITRACIN OINT 0.9 GM PACK TOP SCH (08:17)
[2018-03-20] MEDS: PANTOPRAZOLE 40 MG VIAL IV SCH (08:17)
[2018-03-20] MEDS: fentaNYL INJ 1,250 MCG in SODIUM CHLORIDE 0.9% 225 ML IV PRN ×2 (08:32→23:46)
[2018-03-20] MEDS: ENOXAPARIN 40 MG/0.4 ML SYRINGE SUBCUT SCH (12:12)
[2018-03-20] MEDS: LORazepam 2 MG/1 ML VIAL IV PRN (15:39)
[2018-03-20] MEDS: POTASSIUM PHOSPHATE IV SCH (18:15)
[2018-03-20] MEDS: MULTIVITAMIN IV SCH (18:15)
[2018-03-20] MEDS: [UNRECOGNIZED DRUG - OTHER] IV SCH (18:15)
[2018-03-20] MEDS: TRACE ELEMENTS IV SCH (18:15)
[2018-03-20] MEDS: ACETAMINOPHEN 650 MG SUPP RECTAL PRN (18:25)
[2018-03-21] MEDS: INSULIN REGULAR 100 UNIT/ML SUBCUT SCH ×4 (00:57→19:12)
[2018-03-21 04:45] LABS: ABG Base Excess -0.5 MMOL/L (-2.5-2.5); ABG Oxygen Saturation 98.7 % (95-100); ABG PCO2 42.3 MM HG (35-48); ABG PH 7.375 (7.35-7.45); ABG TCO2 22.6 MMOL/L (23-27)
[2018-03-21] MEDS: PROPOFOL 1,000 MG/100 ML BOTTLE IV SCH ×3 (05:09→18:25)
[2018-03-21 05:23] LABS: Basophils % 0.3 % (0.0-0.8); Eosinophils # 0.6 10*3/uL (0.0-0.87); Eosinophils % 4.2 % (0.00-10.9); Hematocrit 28.7 VOL% (42.0-52.0); Hemoglobin 9.2 GM/DL (14.0-18.0); Immature Granulocytes % 5.7 %; Immature Granulocytes Absolute 0.83 #; Lymphocytes # 1.4 10*3/uL (1.4-4.0); Lymphocytes % 9.9 % (21.2-54.2); Mean Corpuscular HGB Conc 32.1 GM/DL (32-36); Mean Corpuscular Hemoglobin 30 PG (27-34); Mean Corpuscular Volume 92.6 FL (87-102); Mean Platelet Volume 9.5 FL (9.6-12.0); Monocytes # 1.6 10*3/uL (0.11-0.8); Monocytes % 10.9 % (1.7-12.7); NRBC # 0.15 10*3/uL; Platelet Count 421 T/CUMM (130-400); Red Cell Distribution Width 14.2 % (9.3-17.3); White Blood Count 14.5 T/CUMM (4-12)
[2018-03-21 05:47] LABS: Band Neutrophils 3 % (0-10); Eosinophils 3 % (0-10); Lymphocytes 4 % (20-55); Nucleated Red Blood Cells 2 (0-5); Segmented Neutrophils 82 % (50-85); Total Cells Counted 100
[2018-03-21 05:48] LABS: Hypochromasia 1+; Ovalocytes Slight; Platelet Estimate Adequate
[2018-03-21 05:50] LABS: Calcium 7.9 MG/DL (8.5-10.1); Osmolality,Calculated 276.5 MOS/KG (273-304); Potassium 4.3 MMOL/L (3.5-5.1)
[2018-03-21] MEDS ORDERED: VANCOMYCIN INJ 1,000 MG in SODIUM CHLORIDE 0.9% 250 ML IV SCH (08:00)
[2018-03-21] MEDS: PIPERACILLIN/TAZOBACTAM 3,375 MG in SODIUM CHLORIDE 0.9% 100 ML IV SCH ×2 (08:47→16:41)
[2018-03-21] MEDS: HALOPERIDOL 5 MG/ML AMP IV SCH ×2 (08:52→20:30)
[2018-03-21] MEDS: PANTOPRAZOLE 40 MG VIAL IV SCH (08:52)
[2018-03-21 08:56] LABS: Alanine Aminotransferase 38 U/L (16-61); Albumin 1.5 G/DL (3.4-5.0); Alkaline Phosphatase 61 U/L (45-117); Aspartate Amino Transferase 23 U/L (0-37); Bilirubin,Total < 0.39 MG/DL (0.2-1.0); Blood Urea Nitrogen 12 MG/DL (7-18); Glucose 113 MG/DL (74-106); Osmolality,Calculated 275.7 MOS/KG (273-304); Potassium 4.3 MMOL/L (3.5-5.1); Sodium 138 MMOL/L (136-145); Total Protein 5.8 G/DL (6.4-8.3)
[2018-03-21] MEDS: BACITRACIN OINT 0.9 GM PACK TOP SCH (08:59)
[2018-03-21] MEDS ORDERED: DEXTROSE 10% 1,000 ML IV PRN (09:47)
[2018-03-21] MEDS: VANCOMYCIN INJ 1,500 MG in SODIUM CHLORIDE 0.9% 500 ML IV SCH ×2 (12:24→22:11)
[2018-03-21] MEDS: ENOXAPARIN 40 MG/0.4 ML SYRINGE SUBCUT SCH (12:29)
[2018-03-21] MEDS: POTASSIUM PHOSPHATE IV SCH (15:08)
[2018-03-21] MEDS: MULTIVITAMIN IV SCH (15:08)
[2018-03-21] MEDS: TRACE ELEMENTS IV SCH (15:08)
[2018-03-21] MEDS: [UNRECOGNIZED DRUG - OTHER] IV SCH (15:08)
[2018-03-21 16:16] LABS: Amylase,Body Fluid 192 U/L
[2018-03-21] MEDS: fentaNYL INJ 1,250 MCG in SODIUM CHLORIDE 0.9% 225 ML IV PRN (16:29)
[2018-03-21] MEDS: ACETAMINOPHEN 650 MG SUPP RECTAL PRN (18:03)
[2018-03-21] MEDS: LORazepam 2 MG/1 ML VIAL IV PRN (22:25)
[2018-03-22] MEDS: INSULIN REGULAR 100 UNIT/ML SUBCUT SCH ×4 (00:06→19:12)
[2018-03-22] MEDS: PIPERACILLIN/TAZOBACTAM 3,375 MG in SODIUM CHLORIDE 0.9% 100 ML IV SCH ×3 (00:40→14:35)
[2018-03-22] MEDS: LORazepam 2 MG/1 ML VIAL IV PRN ×2 (01:16→06:23)
[2018-03-22] MEDS: PROPOFOL 1,000 MG/100 ML BOTTLE IV SCH ×3 (02:24→19:50)
[2018-03-22 03:28] LABS: ABG Base Excess 0.8 MMOL/L (-2.5-2.5); ABG HCO3 25.2 MMOL/L (20-26); ABG Oxygen Saturation 99.2 % (95-100); ABG PCO2 35.5 MM HG (35-48); ABG PH 7.449 (7.35-7.45); ABG TCO2 22.7 MMOL/L (23-27)
[2018-03-22 04:42] LABS: Basophils # 0.1 10*3/uL (0.0-0.2); Basophils % 0.3 % (0.0-0.8); Eosinophils # 0.7 10*3/uL (0.0-0.87); Eosinophils % 3.9 % (0.00-10.9); Hematocrit 28.6 VOL% (42.0-52.0); Hemoglobin 9.1 GM/DL (14.0-18.0); Immature Granulocytes % 5.8 %; Immature Granulocytes Absolute 0.99 #; Lymphocytes # 1.8 10*3/uL (1.4-4.0); Lymphocytes % 10.7 % (21.2-54.2); Mean Corpuscular HGB Conc 31.8 GM/DL (32-36); Mean Corpuscular Hemoglobin 30 PG (27-34); Mean Corpuscular Volume 93.2 FL (87-102); Mean Platelet Volume 9.7 FL (9.6-12.0); Monocytes # 1.9 10*3/uL (0.11-0.8); Monocytes % 11.3 % (1.7-12.7); NRBC # 0.14 10*3/uL; Neutrophils # 11.6 10*3/uL (1.4-7.4); Platelet Count 508 T/CUMM (130-400); Red Blood Count 3.07 MC/CUMM (3.8-5.5); White Blood Count 17.1 T/CUMM (4-12)
[2018-03-22 04:58] LABS: Osmolality,Calculated 276.5 MOS/KG (273-304); Potassium 4.4 MMOL/L (3.5-5.1)
[2018-03-22 05:11] LABS: Eosinophils 4 % (0-10); Lymphocytes 13 % (20-55); Metamyelocytes 4 %; Platelet Estimate Increased; Segmented Neutrophils 71 % (50-85); Total Cells Counted 100
[2018-03-22 05:12] LABS: Acanthocytes Few; Anisocytosis 1+; Hypochromasia Slight; Macrocytosis 1+; Ovalocytes 1+; Target Cells 1+
[2018-03-22] MEDS: HALOPERIDOL 5 MG/ML AMP IV SCH ×2 (08:00→19:15)
[2018-03-22] MEDS: PANTOPRAZOLE 40 MG VIAL IV SCH (08:20)
[2018-03-22] MEDS: fentaNYL INJ 1,250 MCG in SODIUM CHLORIDE 0.9% 225 ML IV PRN ×2 (08:28→22:30)
[2018-03-22] MEDS: BACITRACIN OINT 0.9 GM PACK TOP SCH (10:30)
[2018-03-22] MEDS: VANCOMYCIN INJ 1,500 MG in SODIUM CHLORIDE 0.9% 500 ML IV SCH ×2 (11:21→22:30)
[2018-03-22] MEDS: MULTIVITAMIN IV SCH (11:22)
[2018-03-22] MEDS: POTASSIUM PHOSPHATE IV SCH (11:22)
[2018-03-22] MEDS: [UNRECOGNIZED DRUG - OTHER] IV SCH (11:22)
[2018-03-22] MEDS: TRACE ELEMENTS IV SCH (11:22)
[2018-03-22 13:01] LABS: Apearance,Urine CLEAR (Clear); Bilirubin,Urine Negative (Negative); Blood, Urine Negative (Negative); Glucose,Urine (UA) Negative (Negative); Ketones,Urine Negative (Negative); Mucus,Urine Occasional /LPF (Occasional); Nitrite,Urine Negative (Negative); Protein,Urine Negative; RBC,Urine 3 /HPF (0-4); Urine Color Yellow (Yellow); Urine Urobilinogen < 2.0 EU/DL (0.2-1.0); WBC,Urine 1 /HPF (0-6)
[2018-03-22] MEDS: ACETAMINOPHEN 650 MG SUPP RECTAL PRN (14:22)
[2018-03-22] MEDS: ENOXAPARIN 40 MG/0.4 ML SYRINGE SUBCUT SCH (14:22)
[2018-03-23] MEDS: INSULIN REGULAR 100 UNIT/ML SUBCUT SCH ×5 (00:06→23:40)
[2018-03-23] MEDS: PIPERACILLIN/TAZOBACTAM 3,375 MG in SODIUM CHLORIDE 0.9% 100 ML IV SCH ×3 (00:06→14:36)
[2018-03-23] MEDS: LORazepam 2 MG/1 ML VIAL IV PRN ×4 (00:07→11:38)
[2018-03-23] MEDS: PROPOFOL 1,000 MG/100 ML BOTTLE IV SCH ×3 (04:20→17:00)
[2018-03-23 04:27] LABS: ABG Base Excess 1.4 MMOL/L (-2.5-2.5); ABG HCO3 26.8 MMOL/L (20-26); ABG Oxygen Saturation 95.6 % (95-100); ABG PCO2 45.6 MM HG (35-48); ABG PH 7.387 (7.35-7.45); ABG PO2 84.5 MM HG (80-95); ABG TCO2 28.2 MMOL/L (23-27); Allen Test Positive; Pt O2 Delivery Device Ventilator
[2018-03-23 05:43] LABS: Basophils # 0.1 10*3/uL (0.0-0.2); Basophils % 0.3 % (0.0-0.8); Eosinophils # 0.7 10*3/uL (0.0-0.87); Eosinophils % 3.6 % (0.00-10.9); Hemoglobin 8.5 GM/DL (14.0-18.0); Immature Granulocytes % 5.9 %; Immature Granulocytes Absolute 1.08 #; Lymphocytes # 1.3 10*3/uL (1.4-4.0); Lymphocytes % 7.2 % (21.2-54.2); Mean Corpuscular HGB Conc 31.5 GM/DL (32-36); Mean Corpuscular Hemoglobin 29 PG (27-34); Mean Corpuscular Volume 93.1 FL (87-102); Mean Platelet Volume 9.8 FL (9.6-12.0); Monocytes # 1.5 10*3/uL (0.11-0.8); Monocytes % 8.1 % (1.7-12.7); NRBC # 0.07 10*3/uL; Neutrophils # 13.7 10*3/uL (1.4-7.4); Neutrophils % 74.9 % (38.7-73.9); Platelet Count 556 T/CUMM (130-400); White Blood Count 18.3 T/CUMM (4-12)
[2018-03-23] MEDS ORDERED: FUROSEMIDE 20 MG/2 ML VIAL IV ONE (06:30)
[2018-03-23] MEDS: HALOPERIDOL 5 MG/ML AMP IV SCH ×2 (06:31→18:07)
[2018-03-23 06:53] LABS: Band Neutrophils 1 % (0-10); Eosinophils 3 % (0-10); Lymphocytes 7 % (20-55); Metamyelocytes 2 %; Platelet Estimate Normal; Segmented Neutrophils 79 % (50-85); Total Cells Counted 100
[2018-03-23 06:54] LABS: Anisocytosis 1+; Hypochromasia 2+; Macrocytosis 1+; Ovalocytes 1+; Target Cells 2+
[2018-03-23 06:56] LABS: Calcium 8.1 MG/DL (8.5-10.1); Osmolality,Calculated 274.8 MOS/KG (273-304); Potassium 4.2 MMOL/L (3.5-5.1)
[2018-03-23] MEDS: VANCOMYCIN INJ 1,500 MG in SODIUM CHLORIDE 0.9% 500 ML IV SCH ×2 (09:00→15:00)
[2018-03-23] MEDS: TRACE ELEMENTS IV SCH (09:22)
[2018-03-23] MEDS: POTASSIUM PHOSPHATE IV SCH (09:22)
[2018-03-23] MEDS: [UNRECOGNIZED DRUG - OTHER] IV SCH (09:22)
[2018-03-23] MEDS: MULTIVITAMIN IV SCH (09:22)
[2018-03-23] MEDS: PANTOPRAZOLE 40 MG VIAL IV SCH (09:23)
[2018-03-23] MEDS: BACITRACIN OINT 0.9 GM PACK TOP SCH (09:23)
[2018-03-23] MEDS: ENOXAPARIN 40 MG/0.4 ML SYRINGE SUBCUT SCH (12:11)
[2018-03-23] MEDS: fentaNYL INJ 1,250 MCG in SODIUM CHLORIDE 0.9% 225 ML IV PRN ×2 (12:48→23:18)
[2018-03-24] MEDS: PIPERACILLIN/TAZOBACTAM 3,375 MG in SODIUM CHLORIDE 0.9% 100 ML IV SCH ×4 (00:26→22:53)
[2018-03-24] MEDS: VANCOMYCIN INJ 1,500 MG in SODIUM CHLORIDE 0.9% 500 ML IV SCH ×4 (01:33→23:36)
[2018-03-24 03:41] LABS: ABG Base Excess 1.2 MMOL/L (-2.5-2.5); ABG HCO3 25.9 MMOL/L (20-26); ABG Oxygen Saturation 96.1 % (95-100); ABG PCO2 41.2 MM HG (35-48); ABG PH 7.416 (7.35-7.45); ABG PO2 86.2 MM HG (80-95); ABG TCO2 27.1 MMOL/L (23-27); Allen Test Positive; Pt O2 Delivery Device Ventilator
[2018-03-24] MEDS: PROPOFOL 1,000 MG/100 ML BOTTLE IV SCH ×3 (04:42→18:00)
[2018-03-24 06:00] LABS: Basophils # 0.1 10*3/uL (0.0-0.2); Basophils % 0.5 % (0.0-0.8); Eosinophils # 0.8 10*3/uL (0.0-0.87); Hematocrit 28.8 VOL% (42.0-52.0); Hemoglobin 9.1 GM/DL (14.0-18.0); Immature Granulocytes % 5.7 %; Lymphocytes # 1.8 10*3/uL (1.4-4.0); Lymphocytes % 9.3 % (21.2-54.2); Mean Corpuscular HGB Conc 31.6 GM/DL (32-36); Mean Corpuscular Hemoglobin 29 PG (27-34); Mean Corpuscular Volume 92.6 FL (87-102); Mean Platelet Volume 9.6 FL (9.6-12.0); Monocytes # 1.7 10*3/uL (0.11-0.8); NRBC # 0.05 10*3/uL; Neutrophils # 13.8 10*3/uL (1.4-7.4); Neutrophils % 71.5 % (38.7-73.9); Platelet Count 623 T/CUMM (130-400); Red Blood Count 3.11 MC/CUMM (3.8-5.5); White Blood Count 19.3 T/CUMM (4-12)
[2018-03-24 06:11] LABS: Calcium 8.3 MG/DL (8.5-10.1); Osmolality,Calculated 277.7 MOS/KG (273-304); Potassium 4.4 MMOL/L (3.5-5.1)
[2018-03-24] MEDS: ELECTROLYTE CONCENTRATE 40 ML, TRACE ELEMENTS (5) 1 ML, MULTIVITAMIN INJ 10 ML, POTASSI... IV SCH ×2 (06:15→23:02)
[2018-03-24] MEDS: INSULIN REGULAR 100 UNIT/ML SUBCUT SCH ×4 (06:18→23:09)
[2018-03-24] MEDS ORDERED: FUROSEMIDE 20 MG/2 ML VIAL IV ONE (06:40)
[2018-03-24] MEDS: HALOPERIDOL 5 MG/ML AMP IV SCH ×2 (06:43→18:26)
[2018-03-24 07:56] LABS: Anisocytosis 1+; Band Neutrophils 5 % (0-10); Eosinophils 5 % (0-10); Lymphocytes 11 % (20-55); Nucleated Red Blood Cells 2 (0-5); Platelet Estimate Increased; Polychromasia Slight; Segmented Neutrophils 69 % (50-85); Total Cells Counted 100
[2018-03-24 07:57] LABS: Giant Platelets Few; Macrocytosis 1+
[2018-03-24] MEDS: PANTOPRAZOLE 40 MG VIAL IV SCH (08:26)
[2018-03-24] MEDS: BACITRACIN OINT 0.9 GM PACK TOP SCH (08:26)
[2018-03-24] MEDS: LORazepam 2 MG/1 ML VIAL IV PRN (08:26)
[2018-03-24] MEDS ORDERED: MIDAZOLAM 2 MG/2 ML VIAL IV ONE (11:50)
[2018-03-24] MEDS ORDERED: MIDAZOLAM 2 MG/2 ML VIAL ONE (11:54)
[2018-03-24] MEDS: fentaNYL INJ 1,250 MCG in SODIUM CHLORIDE 0.9% 225 ML IV PRN ×2 (13:00→23:53)
[2018-03-24] MEDS: ENOXAPARIN 40 MG/0.4 ML SYRINGE SUBCUT SCH (13:20)
[2018-03-25] MEDS: PROPOFOL 1,000 MG/100 ML BOTTLE IV SCH ×3 (00:44→18:34)
[2018-03-25 04:10] LABS: ABG Base Excess 0.2 MMOL/L (-2.5-2.5); ABG HCO3 24.6 MMOL/L (20-26); ABG Oxygen Saturation 98.5 % (95-100); ABG PCO2 41.9 MM HG (35-48); ABG PH 7.388 (7.35-7.45); ABG TCO2 23.2 MMOL/L (23-27); Allen Test Positive; Pt O2 Delivery Device Ventilator
[2018-03-25 05:07] LABS: Basophils # 0.1 10*3/uL (0.0-0.2); Basophils % 0.5 % (0.0-0.8); Eosinophils % 5.1 % (0.00-10.9); Hematocrit 30.8 VOL% (42.0-52.0); Hemoglobin 9.4 GM/DL (14.0-18.0); Immature Granulocytes % 5.4 %; Immature Granulocytes Absolute 1.02 #; Lymphocytes # 1.7 10*3/uL (1.4-4.0); Mean Corpuscular HGB Conc 30.5 GM/DL (32-36); Mean Corpuscular Hemoglobin 29 PG (27-34); Mean Corpuscular Volume 94.5 FL (87-102); Mean Platelet Volume 9.7 FL (9.6-12.0); Monocytes # 2.1 10*3/uL (0.11-0.8); Monocytes % 11.2 % (1.7-12.7); NRBC # 0.06 10*3/uL; Neutrophils # 13.1 10*3/uL (1.4-7.4); Neutrophils % 68.8 % (38.7-73.9); Platelet Count 621 T/CUMM (130-400); Red Blood Count 3.26 MC/CUMM (3.8-5.5); Red Cell Distribution Width 13.9 % (9.3-17.3)
[2018-03-25] MEDS: INSULIN REGULAR 100 UNIT/ML SUBCUT SCH ×4 (06:20→23:03)
[2018-03-25 06:29] LABS: Atypical Lymphocytes Few; Eosinophils 5 % (0-10); Hypochromasia 1+; Lymphocytes 14 % (20-55); Platelet Estimate Increased; Segmented Neutrophils 70 % (50-85)
[2018-03-25 06:30] LABS: Reactive Lymphocytes Few; Target Cells Few
[2018-03-25 06:32] LABS: Total Cells Counted 100
[2018-03-25] MEDS: HALOPERIDOL 5 MG/ML AMP IV SCH ×2 (07:09→20:41)
[2018-03-25] MEDS: VANCOMYCIN INJ 1,500 MG in SODIUM CHLORIDE 0.9% 500 ML IV SCH ×2 (08:09→16:27)
[2018-03-25] MEDS: PANTOPRAZOLE 40 MG VIAL IV SCH (08:09)
[2018-03-25] MEDS: PIPERACILLIN/TAZOBACTAM 3,375 MG in SODIUM CHLORIDE 0.9% 100 ML IV SCH (08:10)
[2018-03-25] MEDS: BACITRACIN OINT 0.9 GM PACK TOP SCH (09:53)
[2018-03-25] MEDS: fentaNYL INJ 1,250 MCG in SODIUM CHLORIDE 0.9% 225 ML IV PRN ×2 (12:15→22:09)
[2018-03-25] MEDS: ENOXAPARIN 40 MG/0.4 ML SYRINGE SUBCUT SCH (13:19)
[2018-03-25] MEDS: cefTRIAXone 1,000 MG in SYRINGE 1 EACH IV SCH (13:19)
[2018-03-25] MEDS: ELECTROLYTE CONCENTRATE 40 ML, TRACE ELEMENTS (5) 1 ML, MULTIVITAMIN INJ 10 ML, POTASSI... IV SCH (16:26)
[2018-03-25] MEDS: ACETAMINOPHEN 650 MG SUPP RECTAL PRN (21:21)
[2018-03-26] MEDS: VANCOMYCIN INJ 1,500 MG in SODIUM CHLORIDE 0.9% 500 ML IV SCH ×3 (00:15→21:51)
[2018-03-26] MEDS: PROPOFOL 1,000 MG/100 ML BOTTLE IV SCH ×3 (00:15→22:12)
[2018-03-26 04:18] LABS: ABG Base Excess -0.5 MMOL/L (-2.5-2.5); ABG Oxygen Saturation 97.8 % (95-100); ABG TCO2 22.8 MMOL/L (23-27); Allen Test Positive; Pt O2 Delivery Device Ventilator
[2018-03-26] MEDS: INSULIN REGULAR 100 UNIT/ML SUBCUT SCH ×3 (05:18→18:05)
[2018-03-26 05:51] LABS: Prealbumin 17.5 MG/DL (20-40)
[2018-03-26] MEDS: HALOPERIDOL 5 MG/ML AMP IV SCH ×3 (06:08→13:11)
[2018-03-26] MEDS: fentaNYL INJ 1,250 MCG in SODIUM CHLORIDE 0.9% 225 ML IV PRN (06:11)
[2018-03-26 07:30] LABS: Basophils # 0.1 10*3/uL (0.0-0.2); Basophils % 0.5 % (0.0-0.8); Eosinophils # 1.1 10*3/uL (0.0-0.87); Eosinophils % 6.8 % (0.00-10.9); Hematocrit 27.5 VOL% (42.0-52.0); Hemoglobin 8.6 GM/DL (14.0-18.0); Immature Granulocytes % 6.2 %; Immature Granulocytes Absolute 0.96 #; Lymphocytes # 1.2 10*3/uL (1.4-4.0); Mean Corpuscular HGB Conc 31.3 GM/DL (32-36); Mean Corpuscular Hemoglobin 30 PG (27-34); Mean Corpuscular Volume 94.5 FL (87-102); Mean Platelet Volume 9.4 FL (9.6-12.0); Monocytes # 1.9 10*3/uL (0.11-0.8); Monocytes % 12.2 % (1.7-12.7); NRBC # 0.08 10*3/uL; Neutrophils # 10.3 10*3/uL (1.4-7.4); Neutrophils % 66.3 % (38.7-73.9); Platelet Count 632 T/CUMM (130-400); Red Blood Count 2.91 MC/CUMM (3.8-5.5); White Blood Count 15.5 T/CUMM (4-12)
[2018-03-26 07:38] LABS: Band Neutrophils 2 % (0-10); Eosinophils 6 % (0-10); Hypochromasia 1+; Lymphocytes 9 % (20-55); Platelet Estimate Increased; Segmented Neutrophils 77 % (50-85); Total Cells Counted 100
[2018-03-26 07:39] LABS: Atypical Lymphocytes Few
[2018-03-26 07:47] LABS: Calcium 8.2 MG/DL (8.5-10.1); Osmolality,Calculated 276.8 MOS/KG (273-304); Potassium 4.5 MMOL/L (3.5-5.1)
[2018-03-26 08:16] LABS: Apearance,Urine CLEAR (Clear); Bilirubin,Urine Negative (Negative); Blood, Urine Small mg/dL (Negative); Glucose,Urine (UA) Negative (Negative); Ketones,Urine Negative (Negative); Mucus,Urine Occasional /LPF (Occasional); Nitrite,Urine Negative (Negative); Protein,Urine Negative; RBC,Urine 44 /HPF (0-4); Urine Color Yellow (Yellow); Urine Urobilinogen < 2.0 EU/DL (0.2-1.0); WBC,Urine 2 /HPF (0-6)
[2018-03-26] MEDS: PANTOPRAZOLE 40 MG VIAL IV SCH (08:22)
[2018-03-26] MEDS: ELECTROLYTE CONCENTRATE 40 ML, TRACE ELEMENTS (5) 1 ML, MULTIVITAMIN INJ 10 ML, POTASSI... IV SCH (08:32)
[2018-03-26] MEDS: ONDANSETRON 4 MG/2 ML VIAL IV PRN ×2 (08:38→22:11)
[2018-03-26 09:23] LABS: ABG Base Excess -2.4 MMOL/L (-2.5-2.5); ABG HCO3 22.4 MMOL/L (20-26); ABG Oxygen Saturation 98.1 % (95-100); ABG PCO2 53.2 MM HG (35-48); ABG PH 7.279 (7.35-7.45); ABG TCO2 22.8 MMOL/L (23-27); Allen Test Positive; Pt O2 Delivery Device Ventilator
[2018-03-26] MEDS: BACITRACIN OINT 0.9 GM PACK TOP SCH (11:15)
[2018-03-26] MEDS ORDERED: LIDOCAINE 1% 20 ML VIAL MISC INJ ONE (11:58)
[2018-03-26] MEDS ORDERED: MIDAZOLAM 2 MG/2 ML VIAL IV ONE (11:58)
[2018-03-26] MEDS: ENOXAPARIN 40 MG/0.4 ML SYRINGE SUBCUT SCH (13:00)
[2018-03-26] MEDS: cefTRIAXone 1,000 MG in SYRINGE 1 EACH IV SCH (13:00)
[2018-03-26 13:09] LABS: Allen Test Positive; Pt O2 Delivery Device Other
[2018-03-26 13:11] LABS: ABG Base Excess -0.1 MMOL/L (-2.5-2.5); ABG HCO3 24.5 MMOL/L (20-26); ABG Oxygen Saturation 94.3 % (95-100); ABG PCO2 39.3 MM HG (35-48); ABG PH 7.412 (7.35-7.45); ABG PO2 71.2 MM HG (80-95); ABG TCO2 25.7 MMOL/L (23-27)
[2018-03-26] MEDS: FAT EMULSION 20% 250 ML IV SCH (15:26)
[2018-03-26] MEDS: ACETAMINOPHEN 650 MG SUPP RECTAL PRN (16:28)
[2018-03-26] MEDS: METOCLOPRAMIDE 10 MG/2 ML VIAL IV SCH (17:26)
[2018-03-26] MEDS: ACETAMINOPHEN 325 MG TABLET NG PRN (22:05)
[2018-03-27] MEDS: INSULIN REGULAR 100 UNIT/ML SUBCUT SCH ×5 (00:35→23:27)
[2018-03-27] MEDS: METOCLOPRAMIDE 10 MG/2 ML VIAL IV SCH ×4 (00:43→18:59)
[2018-03-27 04:14] LABS: ABG Base Excess 1.6 MMOL/L (-2.5-2.5); ABG HCO3 25.8 MMOL/L (20-26); ABG Oxygen Saturation 95.8 % (95-100); ABG PCO2 37.8 MM HG (35-48); ABG PH 7.439 (7.35-7.45); ABG PO2 75.1 MM HG (80-95); ABG TCO2 23.4 MMOL/L (23-27); Allen Test Positive; Pt O2 Delivery Device Other
[2018-03-27] MEDS: BACITRACIN OINT 0.9 GM PACK TOP SCH (04:50)
[2018-03-27 05:50] LABS: Basophils # 0.1 10*3/uL (0.0-0.2); Basophils % 0.5 % (0.0-0.8); Eosinophils # 0.7 10*3/uL (0.0-0.87); Eosinophils % 4.3 % (0.00-10.9); Hematocrit 30.2 VOL% (42.0-52.0); Hemoglobin 9.3 GM/DL (14.0-18.0); Immature Granulocytes % 3.6 %; Immature Granulocytes Absolute 0.57 #; Lymphocytes # 1.3 10*3/uL (1.4-4.0); Lymphocytes % 8.4 % (21.2-54.2); Mean Corpuscular HGB Conc 30.8 GM/DL (32-36); Mean Corpuscular Hemoglobin 28 PG (27-34); Mean Corpuscular Volume 92.1 FL (87-102); Mean Platelet Volume 9.7 FL (9.6-12.0); Monocytes # 1.9 10*3/uL (0.11-0.8); Monocytes % 12.1 % (1.7-12.7); NRBC # 0.12 10*3/uL; Neutrophils # 11.3 10*3/uL (1.4-7.4); Neutrophils % 71.1 % (38.7-73.9); Platelet Count 657 T/CUMM (130-400); Red Blood Count 3.28 MC/CUMM (3.8-5.5); Red Cell Distribution Width 13.7 % (9.3-17.3); White Blood Count 15.9 T/CUMM (4-12)
[2018-03-27] MEDS: ELECTROLYTE CONCENTRATE 40 ML, TRACE ELEMENTS (5) 1 ML, MULTIVITAMIN INJ 10 ML, POTASSI... IV SCH ×2 (06:04→23:32)
[2018-03-27 06:09] LABS: Calcium 8.5 MG/DL (8.5-10.1); Osmolality,Calculated 278.5 MOS/KG (273-304)
[2018-03-27 06:10] LABS: Eosinophils 2 % (0-10); Lymphocytes 7 % (20-55); Platelet Estimate Increased; Segmented Neutrophils 88 % (50-85); Total Cells Counted 100
[2018-03-27 06:11] LABS: Polychromasia Few; Target Cells Few
[2018-03-27] MEDS: PANTOPRAZOLE 40 MG VIAL IV SCH (09:13)
[2018-03-27] MEDS: KETOROLAC 30 MG/1 ML VIAL IV SCH ×2 (09:13→15:25)
[2018-03-27] MEDS: VANCOMYCIN INJ 1,500 MG in SODIUM CHLORIDE 0.9% 500 ML IV SCH ×2 (09:13→21:32)
[2018-03-27] MEDS: HYDROmorphone 2 MG/1 ML VIAL IV PRN ×3 (09:57→17:05)
[2018-03-27] MEDS ORDERED: FLUCONAZOLE INJ 400 MG in PREMIX 1 EACH IV ONE (11:00)
[2018-03-27] MEDS: ENOXAPARIN 40 MG/0.4 ML SYRINGE SUBCUT SCH (12:32)
[2018-03-27] MEDS: cefTRIAXone 1,000 MG in SYRINGE 1 EACH IV SCH (12:32)
[2018-03-28] MEDS: METOCLOPRAMIDE 10 MG/2 ML VIAL IV SCH ×4 (01:22→19:00)
[2018-03-28 05:35] LABS: Basophils # 0.1 10*3/uL (0.0-0.2); Basophils % 0.8 % (0.0-0.8); Eosinophils # 1.1 10*3/uL (0.0-0.87); Eosinophils % 7.2 % (0.00-10.9); Hematocrit 28.7 VOL% (42.0-52.0); Immature Granulocytes % 4.9 %; Immature Granulocytes Absolute 0.72 #; Lymphocytes # 1.8 10*3/uL (1.4-4.0); Mean Corpuscular HGB Conc 31.4 GM/DL (32-36); Mean Corpuscular Hemoglobin 29 PG (27-34); Mean Corpuscular Volume 92.6 FL (87-102); Mean Platelet Volume 10.1 FL (9.6-12.0); Monocytes # 1.7 10*3/uL (0.11-0.8); Monocytes % 11.7 % (1.7-12.7); NRBC # 0.15 10*3/uL; Neutrophils # 9.3 10*3/uL (1.4-7.4); Neutrophils % 63.4 % (38.7-73.9); Platelet Count 627 T/CUMM (130-400); Red Cell Distribution Width 14.1 % (9.3-17.3); White Blood Count 14.7 T/CUMM (4-12)
[2018-03-28 05:40] LABS: Calcium 8.6 MG/DL (8.5-10.1); Osmolality,Calculated 277.7 MOS/KG (273-304); Potassium 4.2 MMOL/L (3.5-5.1)
[2018-03-28 06:06] LABS: Band Neutrophils 4 % (0-10); Eosinophils 3 % (0-10); Hypochromasia 1+; Lymphocytes 8 % (20-55); Nucleated Red Blood Cells 2 (0-5); Platelet Estimate Increased; Segmented Neutrophils 80 % (50-85); Total Cells Counted 100
[2018-03-28] MEDS: INSULIN REGULAR 100 UNIT/ML SUBCUT SCH ×3 (06:56→19:02)
[2018-03-28] MEDS: VANCOMYCIN INJ 1,500 MG in SODIUM CHLORIDE 0.9% 500 ML IV SCH ×2 (08:25→20:18)
[2018-03-28] MEDS: PANTOPRAZOLE 40 MG VIAL IV SCH (08:26)
[2018-03-28] MEDS: BACITRACIN OINT 0.9 GM PACK TOP SCH (08:26)
[2018-03-28] MEDS: FAT EMULSION 20% 250 ML IV SCH (08:26)
[2018-03-28] MEDS ORDERED: DEXTROSE 10% 1,000 ML IV PRN (10:12)
[2018-03-28] MEDS: FLUCONAZOLE INJ 200 MG in PREMIX 1 EACH IV SCH (11:14)
[2018-03-28] MEDS: ENOXAPARIN 40 MG/0.4 ML SYRINGE SUBCUT SCH (12:43)
[2018-03-28] MEDS: cefTRIAXone 1,000 MG in SYRINGE 1 EACH IV SCH (13:09)
[2018-03-28] MEDS: HYDROmorphone 2 MG/1 ML VIAL IV PRN ×2 (15:05→20:12)
[2018-03-28] MEDS ORDERED: TRACE ELEMENTS IV SCH (17:00)
[2018-03-28] MEDS ORDERED: MULTIVITAMIN IV SCH (17:00)
[2018-03-28] MEDS ORDERED: ELECTROLYTE IV SCH (17:00)
[2018-03-28] MEDS ORDERED: [UNRECOGNIZED DRUG - OTHER] IV SCH (17:00)
[2018-03-28] MEDS: ELECTROLYTE CONCENTRATE 40 ML, TRACE ELEMENTS (5) 1 ML, MULTIVITAMIN INJ 10 ML, POTASSI... IV SCH (17:15)
[2018-03-29] MEDS: METOCLOPRAMIDE 10 MG/2 ML VIAL IV SCH ×2 (00:54→05:47)
[2018-03-29] MEDS: INSULIN REGULAR 100 UNIT/ML SUBCUT SCH ×5 (01:06→23:58)
[2018-03-29] MEDS: HYDROmorphone 2 MG/1 ML VIAL IV PRN ×2 (02:49→05:49)
[2018-03-29 06:15] LABS: Basophils # 0.2 10*3/uL (0.0-0.2); Basophils % 0.9 % (0.0-0.8); Eosinophils # 1.2 10*3/uL (0.0-0.87); Eosinophils % 6.9 % (0.00-10.9); Hematocrit 29.5 VOL% (42.0-52.0); Hemoglobin 9.3 GM/DL (14.0-18.0); Immature Granulocytes % 5.7 %; Immature Granulocytes Absolute 0.99 #; Lymphocytes # 2.1 10*3/uL (1.4-4.0); Lymphocytes % 12.3 % (21.2-54.2); Mean Corpuscular HGB Conc 31.5 GM/DL (32-36); Mean Corpuscular Hemoglobin 29 PG (27-34); Mean Corpuscular Volume 91.6 FL (87-102); Mean Platelet Volume 10.2 FL (9.6-12.0); Monocytes # 1.9 10*3/uL (0.11-0.8); Monocytes % 11.2 % (1.7-12.7); NRBC # 0.23 10*3/uL; Neutrophils # 10.9 10*3/uL (1.4-7.4); Platelet Count 610 T/CUMM (130-400); Red Blood Count 3.22 MC/CUMM (3.8-5.5); Red Cell Distribution Width 13.8 % (9.3-17.3); White Blood Count 17.3 T/CUMM (4-12)
[2018-03-29 06:28] LABS: Calcium 8.6 MG/DL (8.5-10.1); Potassium 4.2 MMOL/L (3.5-5.1)
[2018-03-29 06:33] LABS: Prealbumin 19.9 MG/DL (20-40)
[2018-03-29 07:54] LABS: Anisocytosis 1+; Band Neutrophils 4 % (0-10); Eosinophils 4 % (0-10); Lymphocytes 18 % (20-55); Macrocytosis Slight; Nucleated Red Blood Cells 2 (0-5); Platelet Estimate Increased; Segmented Neutrophils 61 % (50-85); Total Cells Counted 100
[2018-03-29 07:55] LABS: Hypochromasia Slight
[2018-03-29] MEDS: ACETAMINOPHEN 325 MG TABLET NG PRN ×2 (09:19→17:36)
[2018-03-29] MEDS: FLUCONAZOLE INJ 200 MG in PREMIX 1 EACH IV SCH (09:20)
[2018-03-29] MEDS: BACITRACIN OINT 0.9 GM PACK TOP SCH (09:20)
[2018-03-29] MEDS: PANTOPRAZOLE 40 MG VIAL IV SCH (09:47)
[2018-03-29] MEDS: MAGNESIUM SULF RIDER 2 GM in PREMIX 1 EACH IV PRN (09:50)
[2018-03-29] MEDS: ENOXAPARIN 40 MG/0.4 ML SYRINGE SUBCUT SCH (13:56)
[2018-03-29] MEDS: cefTRIAXone 1,000 MG in SYRINGE 1 EACH IV SCH (13:56)
[2018-03-29] MEDS: ONDANSETRON 4 MG/2 ML VIAL IV PRN (20:48)
[2018-03-30] MEDS: INSULIN REGULAR 100 UNIT/ML SUBCUT SCH ×3 (06:29→17:16)
[2018-03-30 07:25] LABS: Basophils # 0.1 10*3/uL (0.0-0.2); Basophils % 0.6 % (0.0-0.8); Eosinophils # 0.8 10*3/uL (0.0-0.87); Hematocrit 31.1 VOL% (42.0-52.0); Immature Granulocytes % 3.5 %; Immature Granulocytes Absolute 0.66 #; Lymphocytes # 2.3 10*3/uL (1.4-4.0); Lymphocytes % 12.3 % (21.2-54.2); Mean Corpuscular HGB Conc 32.2 GM/DL (32-36); Mean Corpuscular Hemoglobin 29 PG (27-34); Mean Corpuscular Volume 89.9 FL (87-102); Mean Platelet Volume 9.9 FL (9.6-12.0); Monocytes # 2.2 10*3/uL (0.11-0.8); Monocytes % 11.9 % (1.7-12.7); NRBC # 0.16 10*3/uL; Neutrophils # 12.7 10*3/uL (1.4-7.4); Neutrophils % 67.7 % (38.7-73.9); Platelet Count 590 T/CUMM (130-400); Red Blood Count 3.46 MC/CUMM (3.8-5.5); Red Cell Distribution Width 14.2 % (9.3-17.3); White Blood Count 18.8 T/CUMM (4-12)
[2018-03-30 07:41] LABS: Albumin 2.2 G/DL (3.4-5.0); Bilirubin,Total 0.4 MG/DL (0.2-1.0); Calcium 8.6 MG/DL (8.5-10.1); Osmolality,Calculated 273.7 MOS/KG (273-304); Potassium 3.9 MMOL/L (3.5-5.1); Total Protein 7.8 G/DL (6.4-8.3)
[2018-03-30 07:49] LABS: Eosinophils 5 % (0-10); Hypochromasia 1+; Lymphocytes 8 % (20-55); Nucleated Red Blood Cells 1 (0-5); Platelet Estimate Adequate; Segmented Neutrophils 76 % (50-85); Total Cells Counted 100
[2018-03-30 07:50] LABS: Macrocytosis Slight
[2018-03-30] MEDS: BACITRACIN OINT 0.9 GM PACK TOP SCH (09:53)
[2018-03-30] MEDS: PANTOPRAZOLE 40 MG VIAL IV SCH (09:53)
[2018-03-30] MEDS: FLUCONAZOLE INJ 200 MG in PREMIX 1 EACH IV SCH (11:26)
[2018-03-30] MEDS: cefTRIAXone 1,000 MG in SYRINGE 1 EACH IV SCH (14:50)
[2018-03-30] MEDS: ENOXAPARIN 40 MG/0.4 ML SYRINGE SUBCUT SCH (14:51)
[2018-03-30] MEDS: DEXT 5% NACL 0.45% KCL 40 MEQ 40 MEQ/1,000 ML BAG IV SCH (17:49)
[2018-03-30] MEDS: HYDROmorphone 2 MG/1 ML VIAL IV PRN (22:53)
[2018-03-31] MEDS: DEXT 5% NACL 0.45% KCL 40 MEQ 40 MEQ/1,000 ML BAG IV SCH ×3 (01:16→09:25)
[2018-03-31] MEDS: INSULIN REGULAR 100 UNIT/ML SUBCUT SCH ×4 (01:33→18:16)
[2018-03-31 06:16] LABS: Albumin 2.2 G/DL (3.4-5.0); Bilirubin,Total 0.6 MG/DL (0.2-1.0); Calcium 8.3 MG/DL (8.5-10.1); Potassium 4.4 MMOL/L (3.5-5.1); Total Protein 7.4 G/DL (6.4-8.3)
[2018-03-31] MEDS: HYDROmorphone 2 MG/1 ML VIAL IV PRN ×2 (07:56→21:51)
[2018-03-31 07:57] LABS: Basophils # 0.1 10*3/uL (0.0-0.2); Basophils % 0.7 % (0.0-0.8); Eosinophils # 0.6 10*3/uL (0.0-0.87); Eosinophils % 4.1 % (0.00-10.9); Hematocrit 31.6 VOL% (42.0-52.0); Hemoglobin 9.7 GM/DL (14.0-18.0); Immature Granulocytes % 2.9 %; Immature Granulocytes Absolute 0.43 #; Lymphocytes % 13.7 % (21.2-54.2); Mean Corpuscular HGB Conc 30.7 GM/DL (32-36); Mean Corpuscular Hemoglobin 28 PG (27-34); Mean Corpuscular Volume 92.1 FL (87-102); Mean Platelet Volume 10.8 FL (9.6-12.0); Monocytes % 13.7 % (1.7-12.7); NRBC # 0.06 10*3/uL; Neutrophils # 9.5 10*3/uL (1.4-7.4); Neutrophils % 64.9 % (38.7-73.9); Platelet Count 591 T/CUMM (130-400); Red Blood Count 3.43 MC/CUMM (3.8-5.5); Red Cell Distribution Width 14.2 % (9.3-17.3); White Blood Count 14.6 T/CUMM (4-12)
[2018-03-31] MEDS: FLUCONAZOLE INJ 200 MG in PREMIX 1 EACH IV SCH (09:25)
[2018-03-31] MEDS: BACITRACIN OINT 0.9 GM PACK TOP SCH (09:25)
[2018-03-31] MEDS: PANTOPRAZOLE 40 MG VIAL IV SCH (09:25)
[2018-03-31] MEDS: cefTRIAXone 1,000 MG in SYRINGE 1 EACH IV SCH (14:39)
[2018-03-31] MEDS: ENOXAPARIN 40 MG/0.4 ML SYRINGE SUBCUT SCH (14:39)
[2018-04-01] MEDS: DEXT 5% NACL 0.45% KCL 40 MEQ 40 MEQ/1,000 ML BAG IV SCH ×4 (02:20→20:03)
[2018-04-01] MEDS: INSULIN REGULAR 100 UNIT/ML SUBCUT SCH ×5 (02:21→23:55)
[2018-04-01] MEDS: HYDROmorphone 2 MG/1 ML VIAL IV PRN ×4 (02:22→23:55)
[2018-04-01] MEDS: FLUCONAZOLE INJ 200 MG in PREMIX 1 EACH IV SCH (09:17)
[2018-04-01] MEDS: BACITRACIN OINT 0.9 GM PACK TOP SCH (09:17)
[2018-04-01] MEDS: PANTOPRAZOLE 40 MG VIAL IV SCH (09:17)
[2018-04-01] MEDS: cefTRIAXone 1,000 MG in SYRINGE 1 EACH IV SCH (13:34)
[2018-04-01] MEDS: ENOXAPARIN 40 MG/0.4 ML SYRINGE SUBCUT SCH (13:34)
[2018-04-02] MEDS: DEXT 5% NACL 0.45% KCL 40 MEQ 40 MEQ/1,000 ML BAG IV SCH ×2 (03:45→11:49)
[2018-04-02 05:51] LABS: Prealbumin 15.3 MG/DL (20-40)
[2018-04-02] MEDS: HYDROmorphone 2 MG/1 ML VIAL IV PRN ×2 (06:18→09:53)
[2018-04-02] MEDS: INSULIN REGULAR 100 UNIT/ML SUBCUT SCH (06:18)
[2018-04-02] MEDS: PANTOPRAZOLE 40 MG VIAL IV SCH (08:08)
[2018-04-02] MEDS: BACITRACIN OINT 0.9 GM PACK TOP SCH (08:09)
[2018-04-02] MEDS: FLUCONAZOLE INJ 200 MG in PREMIX 1 EACH IV SCH (09:10)
[2018-04-02 11:51] VITALS: BP 96/66
[2018-04-02] MEDS ORDERED: DIPH/TET/ACEL PERT BOOSTER VACCINE 0.5 ML VIAL IM ONE (12:00)
== END 2018-04-02 13:28 | disposition home or self-care (01) | DRG 957 ==
LOC: N.ED 15:42 → N.ICU 16:01 → N.EDINP 16:57 → N.ICU 17:36 → N.3E 03-28 09:43
PROVIDERS: ADMIT Surgery; ATTEND Surgery